=== PATIENT | female | born 2000 | race American Indian/Alaskan Native ===

== ENCOUNTER 2020-02-01 13:54 | Inpatient (IN) | payer OTHER, BC ==
[2020-02-01] MEDS ORDERED: ONDANSETRON 4 MG/2 ML INJ ONE (14:33)
[2020-02-01] MEDS ORDERED: MORPHINE 4 MG/1 ML INJ ONE (14:34)
[2020-02-01] MEDS ORDERED: ONDANSETRON 4 MG/2 ML INJ IV ONE (14:43)
[2020-02-01] MEDS ORDERED: MORPHINE 4 MG/1 ML INJ IV ONE (14:43)
[2020-02-01] MEDS ORDERED: HYDROmorphone 1 MG/1 ML INJ IV ONE (15:11)
--- NOTE | 2020-02-01 15:25 | XRay Report ---
RIGHT HIP 3 VIEW INDICATION / CLINICAL INFORMATION: Trauma right leg pelvic deformity. COMPARISON: None available. FINDINGS: BONES/JOINT(S): There is a displaced and comminuted fracture of the mid to distal right femoral shaft with about one shaft width posterior displacement of the distal fracture fragment. SOFT TISSUES: No significant abnormality. ADDITIONAL FINDINGS: None. Signer Name: Navjot Christian MD Signed: 02/01/2020 3:21 PM Workstation Name: [id number]
--- NOTE | 2020-02-01 15:25 | XRay Report ---
RIGHT FEMUR 4 VIEW INDICATION / CLINICAL INFORMATION: Right hip deformity trauma. COMPARISON: None available. FINDINGS: BONES/JOINT(S): There is a displaced and comminuted fracture of the mid to distal right femoral shaft with about one shaft width posterior displacement of the distal fracture fragment. SOFT TISSUES: No significant abnormality. ADDITIONAL FINDINGS: None. Signer Name: Navjot Christian MD Signed: 02/01/2020 3:21 PM Workstation Name: [id number]
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
[2020-02-01 16:15] LABS: Hematocrit 32.7 % (30.3-42.9); Hemoglobin 10.5 gm/dl (10.1-14.3); Mean Corpuscular HGB Conc 32 % (30-34); Platelet Count 316 K/mm3 (140-440); Red Blood Count 4.77 M/mm3 (3.65-5.03); Red Cell Distribution Width 18.2 % (13.2-15.2)
[2020-02-01 16:22] LABS: Mean Corpuscular Volume 69 fl (79-97)
[2020-02-01 16:27] LABS: INR 1.07 (0.87-1.13)
[2020-02-01 16:37] LABS: Blood Urea Nitrogen 8 mg/dL (7-17); Calcium 9.2 mg/dL (8.4-10.2); Hemolysis Index 0
[2020-02-01 16:43] LABS: BUN/Creatinine Ratio 11
[2020-02-01] MEDS ORDERED: POTASSIUM CHLORIDE ER 20 MEQ TAB PO ONE ×2 (16:53→22:15)
[2020-02-01] MEDS ORDERED: ACETAMINOPHEN 325 MG TAB PO PRN (20:04)
[2020-02-01] MEDS ORDERED: METOCLOPRAMIDE 10 MG/2 ML INJ IV PRN (20:04)
[2020-02-01] MEDS ORDERED: ONDANSETRON 4 MG/2 ML INJ IV PRN (20:04)
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
[2020-02-01] MEDS ORDERED: HYDROmorphone 1 MG/1 ML INJ IM PRN (20:13)
[2020-02-01] MEDS: HYDROmorphone 1 MG/1 ML INJ IV PRN (21:32)
[2020-02-01] MEDS: FAMOTIDINE 20 MG/2 ML INJ IV SCH (21:33)
[2020-02-01] MEDS: SODIUM CHLORIDE 0.9% 1000 ML 1,000 ML IV SCH (21:37)
[2020-02-02] MEDS: HYDROmorphone 1 MG/1 ML INJ IV PRN ×3 (00:56→09:41)
[2020-02-02] MEDS ORDERED: SCOPOLAMINE TRANSDERMAL PATCH 72 HR TD NR (06:00)
[2020-02-02 06:39] LABS: Basophils % (Auto) 0.2 % (0.0-1.8); Eosinophils % (Auto) 0.2 % (0.0-4.3); Hematocrit 30.8 % (30.3-42.9); Hemoglobin 9.8 gm/dl (10.1-14.3); Lymphocytes # (Auto) 0.9 K/mm3 (1.2-5.4); Lymphocytes % (Auto) 11.3 % (13.4-35.0); Mean Corpuscular HGB Conc 32 % (30-34); Monocytes # (Auto) 0.8 K/mm3 (0.0-0.8); Monocytes % (Auto) 10.5 % (0.0-7.3); Platelet Count 316 K/mm3 (140-440); Red Blood Count 4.45 M/mm3 (3.65-5.03); Red Cell Distribution Width 17.8 % (13.2-15.2)
[2020-02-02 06:40] LABS: Mean Corpuscular Volume 69 fl (79-97)
[2020-02-02 06:42] LABS: Alanine Aminotransferase 10 units/L (7-56); Blood Urea Nitrogen 6 mg/dL (7-17); Calcium 9.2 mg/dL (8.4-10.2); Hemolysis Index 3
[2020-02-02 06:55] LABS: BUN/Creatinine Ratio 9
[2020-02-02] MEDS: FAMOTIDINE 20 MG/2 ML INJ IV SCH ×2 (09:41→21:25)
[2020-02-02] MEDS ORDERED: LIDOCAINE MPF (2%) 20 MG/1 ML VIAL 5 ML ONE (12:26)
[2020-02-02] MEDS ORDERED: propofoL 200 MG/20 ML VIAL IV ONE (12:26)
[2020-02-02] MEDS ORDERED: ONDANSETRON 4 MG/2 ML INJ ONE (12:26)
[2020-02-02] MEDS ORDERED: HYDROmorphone 1 MG/1 ML INJ ONE ×2 (12:26→16:35)
[2020-02-02] MEDS ORDERED: HYDROmorphone 1 MG/1 ML INJ IV PRN (12:35)
[2020-02-02] MEDS ORDERED: ONDANSETRON 4 MG/2 ML INJ IV PRN (12:35)
--- NOTE | 2020-02-02 12:37 | Anesthesia Day of Surgery ---
Anesthesia Day of Surgery - Day of Surgery Patient Examined: Yes Patient H&P Reviewed: Yes Patient is NPO: Yes
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
[2020-02-02] MEDS: LACTATED RINGERS 1,000 ML IV SCH ×2 (12:39→18:18)
[2020-02-02] MEDS ORDERED: SCOPOLAMINE TRANSDERMAL PATCH 72 HR TD ONE (12:39)
[2020-02-02] MEDS ORDERED: ceFAZolin/STERILE WATER 2 GM/20 ML SYRINGE IV NR (13:00)
[2020-02-02] MEDS ORDERED: ceFAZolin/Water 2 GM/20 ML 2 GM/20 ML SYRINGE IV ONE (13:02)
[2020-02-02] MEDS ORDERED: dexAMETHasone 20 MG/5 ML VIAL ONE (13:32)
[2020-02-02] MEDS ORDERED: LACTATED RINGERS 1,000 ML ONE ×2 (14:23→16:30)
[2020-02-02] MEDS ORDERED: PHENYLEPHRINE/NS 1,000 MCG/10 ML SYRINGE (OR USE) IV ONE (14:23)
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
[2020-02-02] MEDS ORDERED: MORPHINE 2 MG/1 ML INJ IV PRN (16:06)
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
--- NOTE | 2020-02-02 16:26 | Procedure Note ---
Date of procedure: 02/02/20 Pre-op diagnosis: Displaced right femur fracture Post-op diagnosis: same Procedure: Closed reduction insertion of intramedullary nail [right] femur Procedure Patient was brought to the OR on hospital bed following induction and intubation by anesthesia the patient's was placed onto [place] table at which point the lower extremities were placed in longitudinal traction. C-arm fluoroscopy was brought in and the fracture was identified traction was placed on the extremity following this the [right] lower extremity was prepped and draped in the usual sterile fashion. A timeout procedure was done to identify the patient and the correct operative site. Next the incision was made along the proximal thigh slightly posterior to the greater trochanter was taken down sharply through skin and subcu using an awl positioned along the proximal aspect greater trochanter and piriformis fossa following this a guidewire or pin was inserted AP and lateral views were obtained showing good placement of our guidepin next the guidepin was then overreamed this was followed by insertion of the ballpoint guide wire care was taken to transverse the fracture site after multiple attempts at Closed reduction a secondary incision was made over the proximal femur at the level of the fracture and using digital palpation and bone-holding forceps or clamps the fracture was reduced and the more anatomic position the guidewire was then threaded into the distal fragment next the measurement was obtained a 400 mm length juanis was chosen with a diameter 10 mm following this the canal was then subsequently reamed to 11.5 mm diameter next the intramedullary nail was inserted in an antegrade fashion down the proximal fracture into the distal fragment again using C-arm visualization the fracture was placed and is the distal location as well as proximally the fracture site appeared to be a reduced anatomically therefore only 2 of proximal screws were used to stabilize the proximal fragment no distal locking screws were needed for this particular fracture pattern following this the wound was then copiously irrigated and was closed in a standard routine fashion the patient tolerated the procedure there were no complications reduction insertion of intramedullary nail right femur Anesthesia: GETA Surgeon: ROBBY SCHAEFER (Gely Zheng 1st assist) Estimated blood loss: 50-100ml Pathology: none Condition: stable Disposition: PACU
--- NOTE | 2020-02-02 16:57 | XRay Report ---
CLINICAL INDICATION: RT FEMORAL FRACTURE TECHNICAL DATA: C-arm imaging was performed. Fluoroscopy time 8.1 minutes and 5 spot images obtained FINDINGS: C-arm imaging was performed for placement of a medullary juanis right femur. IMPRESSION: 1. C-arm imaging for placement medullary juanis right femur Signer Name: Rohit Ramirez MD Signed: 02/02/2020 4:53 PM Workstation Name: [id number]
[2020-02-02] MEDS: MORPHINE 4 MG/1 ML INJ IV PRN (21:25)
[2020-02-03] MEDS: HYDROmorphone 1 MG/1 ML INJ IV PRN ×3 (01:49→21:07)
[2020-02-03] MEDS: SODIUM CHLORIDE 0.9% 1000 ML 1,000 ML IV SCH ×2 (05:19→21:15)
[2020-02-03 08:10] LABS: Hematocrit 29.6 % (30.3-42.9); Hemoglobin 9.4 gm/dl (10.1-14.3)
[2020-02-03 08:32] LABS: Blood Urea Nitrogen 7 mg/dL (7-17); Hemolysis Index 1
[2020-02-03 08:34] LABS: BUN/Creatinine Ratio 10
[2020-02-03] MEDS: FAMOTIDINE 20 MG TAB PO SCH ×2 (10:07→21:07)
[2020-02-03] MEDS: ENOXAPARIN 40 MG/0.4 ML INJ SUB-Q SCH (10:07)
[2020-02-03] MEDS: oxyCODONE /ACETAMINOPHEN 5-325MG TAB PO PRN ×2 (10:11→19:46)
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
--- NOTE | 2020-02-03 15:36 | Progress Note ---
Assessment and Plan s/p IM nail right femur post op day 1 doing well continue PT.... Subjective Date of service: 02/03/20 Interval history: c/o right thigh pain, better after surgery....PT started... Objective Vital signs: Vital Signs - 12hr 02/03/20 02/03/20 05:19 05:23 Temperature 98.7 F Pulse Rate 97 H Respiratory 18 18 Rate Blood Pressure 123/75 [Right] O2 Sat by Pulse 100 Oximetry Incision: clean and dry Weight bearing status: as tolerated - Labs CBC & BMP: 02/03/20 07:48 02/03/20 07:48 Labs: Abnormal lab results 02/03/20 02/03/20 Range/Units 07:48 07:48 Hgb 9.4 L (10.1-14.3) gm/dl Hct 29.6 L (30.3-42.9) % Total Creatine Kinase 4364 H (30-135) units/L
[2020-02-04] MEDS: oxyCODONE /ACETAMINOPHEN 5-325MG TAB PO PRN ×2 (01:47→12:35)
[2020-02-04] MEDS: HYDROmorphone 1 MG/1 ML INJ IV PRN ×2 (05:47→20:15)
[2020-02-04 06:13] LABS: Blood Urea Nitrogen 6 mg/dL (7-17); Calcium 8.4 mg/dL (8.4-10.2); Hemolysis Index 2
[2020-02-04 06:14] LABS: BUN/Creatinine Ratio 9
[2020-02-04] MEDS: FAMOTIDINE 20 MG TAB PO SCH ×2 (09:29→22:00)
[2020-02-04] MEDS: ENOXAPARIN 40 MG/0.4 ML INJ SUB-Q SCH (09:29)
--- NOTE | 2020-02-04 15:50 | Progress Note ---
Assessment and Plan doing well will dc to home, f/u with local orthopedist in [facility]... Subjective Date of service: 02/04/20 Interval history: c/o right thigh/leg pain Objective Vital signs: Vital Signs - 12hr 02/04/20 02/04/20 02/04/20 05:06 05:47 07:40 Temperature 99.1 F 98.4 F Pulse Rate 120 H 113 H Respiratory 18 20 18 Rate Blood Pressure 108/55 112/76 O2 Sat by Pulse 99 100 Oximetry 02/04/20 10:18 Temperature Pulse Rate Respiratory Rate Blood Pressure O2 Sat by Pulse 100 Oximetry Incision: healing, clean and dry Weight bearing status: as tolerated - Labs CBC & BMP: 02/03/20 07:48 02/04/20 04:32 Labs: Abnormal lab results 02/04/20 Range/Units 04:32 Sodium 136 L (137-145) mmol/L Potassium 3.4 L (3.6-5.0) mmol/L BUN 6 L (7-17) mg/dL Glucose 101 H (65-100) mg/dL Total Creatine Kinase 3754 H (30-135) units/L
[2020-02-04] MEDS ORDERED: SODIUM CHLORIDE 0.9% 500 ML 500 ML IV NR (17:11)
[2020-02-04] MEDS ORDERED: FUROSEMIDE 40 MG/4 ML INJ IV NR (17:11)
[2020-02-04] MEDS ORDERED: POTASSIUM CHLORIDE ER 20 MEQ TAB PO NR (17:14)
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
[2020-02-05] MEDS: oxyCODONE /ACETAMINOPHEN 5-325MG TAB PO PRN ×3 (02:25→12:56)
[2020-02-05] MEDS ORDERED: FUROSEMIDE 40 MG/4 ML INJ IV SCH (06:00)
[2020-02-05 06:13] LABS: Blood Urea Nitrogen 6 mg/dL (7-17); Calcium 8.9 mg/dL (8.4-10.2); Hemolysis Index 1
[2020-02-05 06:14] LABS: BUN/Creatinine Ratio 10
[2020-02-05] MEDS: FAMOTIDINE 20 MG TAB PO SCH ×2 (09:31→21:51)
[2020-02-05] MEDS: ENOXAPARIN 40 MG/0.4 ML INJ SUB-Q SCH (09:31)
[2020-02-05] MEDS: HYDROmorphone 1 MG/1 ML INJ IV PRN ×2 (16:04→21:52)
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
[2020-02-05] MEDS: FUROSEMIDE 40 MG/4 ML INJ IV SCH (17:50)
[2020-02-05] MEDS: SODIUM CHLORIDE 0.9% 1000 ML 1,000 ML IV SCH ×2 (17:58→23:25)
[2020-02-06] MEDS: MORPHINE 4 MG/1 ML INJ IV PRN ×2 (01:02→05:50)
[2020-02-06] MEDS: SODIUM CHLORIDE 0.9% 1000 ML 1,000 ML IV SCH ×4 (05:56→22:52)
[2020-02-06] MEDS: FUROSEMIDE 40 MG/4 ML INJ IV SCH ×2 (05:58→17:21)
[2020-02-06] MEDS: ENOXAPARIN 40 MG/0.4 ML INJ SUB-Q SCH (09:26)
[2020-02-06] MEDS: FAMOTIDINE 20 MG TAB PO SCH ×2 (09:26→21:42)
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
[2020-02-06] MEDS ORDERED: SODIUM CHLORIDE 0.9% 500 ML 500 ML IV ONE (10:29)
[2020-02-06] MEDS ORDERED: FUROSEMIDE 40 MG/4 ML INJ IV ONE (10:30)
[2020-02-06] MEDS: HYDROmorphone 1 MG/1 ML INJ IV PRN ×2 (15:19→20:06)
[2020-02-07] MEDS: SODIUM CHLORIDE 0.9% 1000 ML 1,000 ML IV SCH ×4 (03:47→22:44)
[2020-02-07] MEDS: FUROSEMIDE 40 MG/4 ML INJ IV SCH ×2 (06:04→20:00)
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
[2020-02-07] MEDS: ENOXAPARIN 40 MG/0.4 ML INJ SUB-Q SCH (10:17)
[2020-02-07] MEDS: FAMOTIDINE 20 MG TAB PO SCH ×2 (10:18→22:09)
[2020-02-07] MEDS: MORPHINE 4 MG/1 ML INJ IV PRN ×2 (10:18→22:09)
[2020-02-07] MEDS: oxyCODONE /ACETAMINOPHEN 5-325MG TAB PO PRN (16:57)
[2020-02-07] MEDS ORDERED: SODIUM CHLORIDE 0.9% 500 ML 500 ML IV ONE (17:45)
[2020-02-07] MEDS ORDERED: FUROSEMIDE 40 MG/4 ML INJ IV ONE (17:45)
[2020-02-07] MEDS ORDERED: HYDROmorphone 1 MG/1 ML INJ ONE (21:41)
[2020-02-08] MEDS: SODIUM CHLORIDE 0.9% 1000 ML 1,000 ML IV SCH (00:39)
[2020-02-08] MEDS: FUROSEMIDE 40 MG/4 ML INJ IV SCH (05:58)
[2020-02-08] MEDS: FAMOTIDINE 20 MG TAB PO SCH (09:32)
[2020-02-08] MEDS: ENOXAPARIN 40 MG/0.4 ML INJ SUB-Q SCH (09:32)
[2020-02-08 11:00] LABS: BUN/Creatinine Ratio 8; Blood Urea Nitrogen 6 mg/dL (7-17); Calcium 9.5 mg/dL (8.4-10.2); Hemolysis Index 0
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
[2020-02-08] MEDS ORDERED: POTASSIUM CHLORIDE ER 10 MEQ TAB PO ONE (12:00)
[2020-02-08 16:34] VITALS: BP 104/54
== END 2020-02-08 16:45 | disposition home or self-care (01) | DRG 956 ==
LOC: ED 13:54 → 3B-SURG 16:05 → OBSVTOIN 02-02 11:38
PROVIDERS: ADMIT Internal Medicine; ATTEND Internal Medicine
PROC: 0QS836Z Reposition Right Femoral Shaft with Intramedullary Internal Fixation Device, Percutaneous Approach (ICD-10-PCS; principal; 2020-02-02)
DX: S72.351A Displaced comminuted fracture of shaft of right femur, initial encounter for closed fracture (principal); T79.6XXA Traumatic ischemia of muscle, initial encounter; E87.1 Hypo-osmolality and hyponatremia; S80.811A Abrasion, right lower leg, initial encounter; E87.6 Hypokalemia; E66.9 Obesity, unspecified; D72.829 Elevated white blood cell count, unspecified; Z68.35 Body mass index [BMI] 35.0-35.9, adult; V89.2XXA Person injured in unspecified motor-vehicle accident, traffic, initial encounter; Z82.49 Family history of ischemic heart disease and other diseases of the circulatory system; Y93.89 Activity, other specified; Y92.89 Other specified places as the place of occurrence of the external cause; Y99.8 Other external cause status
CPT/HCPCS: 36415; 71045; 80048; 80053; 82550; 83036; 83735; 84702; 85014; 85018; 85025; 85027; 85610; 86850; 86900; 86901; 96361; 96374; 96375; G0378; C1713; C1769; J0690; J1100; J1170; J1650; J1940; J2270; J2370; J2405; J2704; J7030; J7040; J7120